=== PATIENT | female | born 1960 | race Two or more races ===

== ENCOUNTER 2024-03-22 09:16 | Emergency (ER) | payer OTHER ==
[~2024-03-22] VITALS: Ht 167.6 cm; Wt 60.8 kg
[2024-03-22] MEDS ORDERED: FAMOtidine 10 MG/ML (4ML VIAL) IV STA (10:07)
[2024-03-22] MEDS ORDERED: ORPHENADRINE CITRATE 30 MG/ML AMPUL IM STA (10:08)
[2024-03-22] MEDS ORDERED: DICYCLOMINE HCL 20 MG TABLET PO STA (10:08)
[2024-03-22] MEDS ORDERED: KETOROLAC TROMETHAMINE 30 MG VIAL IM STA (10:08)
[2024-03-22] MEDS ORDERED: DICYCLOMINE HCL 10 MG CAPSULE PO ONE (10:20)
[2024-03-22 10:51] LABS: HEMATOCRIT 42.2 % (36.0-45.00); HEMOGLOBIN 14.5 g/dL (12.0-15.00); MEAN CELL VOLUME 90.6 fL (80.00-100.00); MEAN CORPUSCULAR HEMOGLOBIN 31.2 pg (27.00-32.0); MEAN CORPUSCULAR HGB CONC 34.5 g/dl (32.0-36.0); PLATELET COUNT 195 K/uL (150-450); RED BLOOD COUNT 4.66 M/uL (4.00-6.00); RED CELL DISTRIBUTION WIDTH 12.5 % (11.5-14.5)
[2024-03-22 11:18] LABS: ALBUMIN 4.2 gm/dL (3.4-5.0); BILIRUBIN TOTAL 0.47 mg/dL (0.3-1.2); CALCIUM 9.7 mg/dL (8.5-10.1); CREATININE SERUM 0.74 mg/dL (0.55-1.02); GFR 79.01; GLOBULINA 4.7 G/DL (2.4-3.5); POTASSIUM 3.92 mEq/L (3.5-5.1); TOTAL PROTEIN 8.9 gm/dL (6.4-8.2)
[2024-03-22 11:26] LABS: PH,URINE 5.5 (5.0-8.0); URINE APPEARANCE Clear; URINE BILIRRUBIN Negative (NEGATIVE); URINE BLOOD Negative; URINE COLOR Yellow; URINE GLUCOSE Negative (NEGATIVE); URINE KETONE Negative (NEGATIVE); URINE LEUKOCYTE Trace; URINE NITRATE Negative; URINE PROTEIN Negative (NEGATIVE); URINE UROBILINOGEN 0.2 E.U./dl
[2024-03-22 11:30] LABS: URINE BACTERIA 6.1 uL (0.0-1933); URINE EPITHELIAL CELLS 1.7 uL (0.0-38.8); URINE RBC 2.2 uL (0.0-20.8); URINE WBC 2.5 uL (0.0-23.2)
[2024-03-22 11:38] LABS: URINE CAST 0.14 uL (0.0-1.40)
[2024-03-22] MEDS ORDERED: MAPAP500 MG PO (14:38)
[2024-03-22] MEDS ORDERED: PEPCID AC20 MG PO (14:38)
[2024-03-22] MEDS ORDERED: NORFLEX100MG PO (14:38)
[2024-03-22] MEDS ORDERED: MEDROLPACK PO (14:38)
== END 2024-03-22 14:43 | disposition home or self-care (01) ==
LOC: ER 09:19
PROVIDERS: General Practice
DX: R10.9 Unspecified abdominal pain (principal); M54.9 Dorsalgia, unspecified
CPT/HCPCS: 36415; 74177; 76700; 96365; 96372; 99284; J1885; J2360; J3490; Q9965

== ENCOUNTER → 2024-03-29 | Emergency (ER) | payer OTHER ==
[~2024-03-29] VITALS: Ht 167.6 cm; Wt 59.4 kg
[~2024-03-29] MED LIST: FAMOTIDINE/PF 20 MG/2 ML VIAL ONE; FAMOtidine 10 MG/ML (4ML VIAL) IV PUSH ONE; KETO10TA2 PO; MAPAP500 MG PO; MEDROLPACK PO; MEPERIDINE HCL/PF 50 MG/ML VIAL IM ONE; NORFLEX100MG PO; ONDANSETRON 4 MG TAB.RAPDIS PO ONE; PEPCID AC20 MG PO
[2024-03-29 12:45] LABS: HEMATOCRIT 42.1 % (36.0-45.00); HEMOGLOBIN 14.9 g/dL (12.0-15.00); MEAN CELL VOLUME 89.4 fL (80.00-100.00); MEAN CORPUSCULAR HEMOGLOBIN 31.6 pg (27.00-32.0); MEAN CORPUSCULAR HGB CONC 35.4 g/dl (32.0-36.0); RED BLOOD COUNT 4.71 M/uL (4.00-6.00); RED CELL DISTRIBUTION WIDTH 12.1 % (11.5-14.5)
[2024-03-29 12:50] LABS: PLATELET COUNT 161 K/uL (150-450)
[2024-03-29 14:17] LABS: ALBUMIN 3.9 gm/dL (3.4-5.0); BILIRUBIN TOTAL 0.49 mg/dL (0.3-1.2); CALCIUM 9.2 mg/dL (8.5-10.1); CREATININE SERUM 0.76 mg/dL (0.55-1.02); GFR 76.62; GLOBULINA 4.3 G/DL (2.4-3.5); POTASSIUM 4.44 mEq/L (3.5-5.1); TOTAL PROTEIN 8.2 gm/dL (6.4-8.2)
== END | disposition home or self-care (01) ==
LOC: ER 10:56
PROVIDERS: General Practice
DX: M54.2 Cervicalgia (principal); Z20.822 Contact with and (suspected) exposure to COVID-19